=== PATIENT | female | born 1980 | race Caucasian/White ===

== ENCOUNTER → 2024-07-13 | Outpatient (CLI) | payer OTHER | LOC: LAB SHORT 13:27 → LAB 13:27 | DX: J02.9 Acute pharyngitis, unspecified (principal) | CPT/HCPCS: 87081 ==

== ENCOUNTER → 2024-08-31 | Outpatient (CLI) | payer OTHER | LOC: LAB 18:19 → LAB SHORT 18:19 | DX: J02.9 Acute pharyngitis, unspecified (principal) | CPT/HCPCS: 87070 ==

== ENCOUNTER → 2024-09-12 | Outpatient (CLI) | payer OTHER | LOC: LAB 12:45 → LAB SHORT 12:45 | DX: J02.9 Acute pharyngitis, unspecified (principal) | CPT/HCPCS: 87070; 87075; 87205 ==